=== PATIENT | female | born 1990 | race Caucasian/White ===

== ENCOUNTER 2022-10-26 08:55 | Emergency (ER) | payer SELFPAY ==
[~2022-10-26] VITALS: Ht 172.7 cm; Wt 73.5 kg
[~2022-10-26 08:55] MED LIST: [UNRECOGNIZED DRUG - REMARK]
[2022-10-26 09:00] VITALS: BP 112/69
--- NOTE | 2022-10-26 09:08 | NUR ---
Pt states "ear fullness/throat irritation" when taking "combo medications."
--- NOTE | 2022-10-26 09:16 | NUR ---
Clean catch urine collected. Pt W/C assisted into chair B.
[2022-10-26] MEDS ORDERED: KETOROLAC 30 MG/ML VIAL IVP ONE (09:25)
[2022-10-26] MEDS ORDERED: FAMOTIDINE 20 MG/2 ML VIAL IVP ONE (09:25)
[2022-10-26] MEDS ORDERED: NACL 0.9% 1,000 ML IV SCH (09:25)
[2022-10-26] MEDS ORDERED: ONDANSETRON 4 MG/2 ML VIAL IVP ONE ×2 (09:25→11:30)
--- NOTE | 2022-10-26 09:46 | NUR ---
Quiana hannon in [facility] - 10/26/22 at 0947 by [email or web address] PT TAKEN TO CHAIR B VIA WHEELCHAIR
--- NOTE | 2022-10-26 09:47 | NUR ---
PT TAKEN TO BED 11 VIA WHEELCHAIR
--- NOTE | 2022-10-26 09:52 | NUR ---
Lab at bedside. UA walked to lab and handed to CPT.
--- NOTE | 2022-10-26 09:58 | NUR ---
Pt to CT by W/C
[2022-10-26 10:07] LABS: BASOPHILS # (AUTO) 0.1 K/uL (0.00-0.22); BASOPHILS % (AUTO) 0.5 % (0.0-2.0); EOSINOPHILS # (AUTO) 0.1 K/uL (0-0.4); EOSINOPHILS % (AUTO) 1.2 % (0.0-4.0); HEMOGLOBIN 12.5 g/dL (12.0-16.0); LYMPHOCYTES # (AUTO) 1.7 K/uL (2.5-16.5); LYMPHOCYTES % (AUTO) 14.2 % (20.5-51.1); MEAN CORPUSCULAR HEMOGLOBIN 27 pg (27-31); MEAN CORPUSCULAR HGB CONC 33 g/dL (33-37); MEAN CORPUSCULAR VOLUME 82.1 fL (80-94); MONOCYTES # (AUTO) 0.7 K/uL (0.8-1.0); MONOCYTES % (AUTO) 5.8 % (1.7-9.3); NEUTROPHILS # (AUTO) 9.4 K/uL (1.8-7.7); NEUTROPHILS % (AUTO) 78.3 % (42.2-75.2); PLATELET COUNT (AUTO) 163 K/uL (140-450); RED BLOOD CELL COUNT(AUTO) 4.63 MIL/uL (4.20-5.40); RED CELL DISTRIBUTION WIDTH 14.2 % (11.6-13.7)
[2022-10-26 10:17] LABS: BILIRUBIN,URINE NEGATIVE (NEGATIVE); BLOOD, URINE NEGATIVE (NEGATIVE); COLOR,URINE YELLOW (YELLOW); LEUKOCYTE ESTERASE ,URINE 1+ (NEGATIVE); NITRITE, URINE NEGATIVE (NEGATIVE); UGLUCOSE NEGATIVE (NEGATIVE)
[2022-10-26 10:19] LABS: ALBUMIN 3.8 g/dL (3.4-5.0); ANION GAP 11.7 (8-16); CARBON DIOXIDE 32.3 mmol/L (21-32); CREATININE 0.8 mg/dL (0.6-1.3); TOTAL BILIRUBIN 0.6 mg/dL (0.0-1.0)
[2022-10-26 10:28] LABS: APPEARANCE,URINE SLIGHTLY HAZY (CLEAR)
[2022-10-26 10:29] LABS: RBC,URINE 0-5 /HPF (0-5)
[2022-10-26 10:30] LABS: WBC,URINE 16-25 (MOD) /HPF (0-5)
[2022-10-26] MEDS ORDERED: NACL 0.9% 1,000 ML IV ONE (11:30)
[2022-10-26] MEDS ORDERED: ONDANSETRON 4 MG/2 ML VIAL ONE (11:35)
[2022-10-26] MEDS ORDERED: METOCLOPRAMIDE 10 MG/2 ML INJ VIAL IVP ONE (12:05)
[2022-10-26] MEDS ORDERED: cefTRIAXone 1,000 MG VIAL ONE (12:09)
[2022-10-26] MEDS ORDERED: ONDA-188 PO (13:21)
[2022-10-26] MEDS ORDERED: NAPR-1704 PO (13:21)
[2022-10-26] MEDS ORDERED: CEPH-588 PO (13:21)
[2022-10-26 13:29] VITALS: BP 94/43
== END 2022-10-26 13:29 | disposition home or self-care (01) ==
LOC: MED 08:55
DX: N12 Tubulo-interstitial nephritis, not specified as acute or chronic (principal); J45.909 Unspecified asthma, uncomplicated; Z90.49 Acquired absence of other specified parts of digestive tract; Z79.899 Other long term (current) drug therapy
CPT/HCPCS: 36415; 74176; 80053; 81001; 81025; 83605; 83690; 85025; 87040; 87086; 96361; 96365; 96375; 96376; 99284; J0696; J1885; J2405; J2765; J3490; J7030